=== PATIENT | male | born 1980 | race Two or more races ===

== ENCOUNTER 2019-10-17 08:46 | Day surgery (SDC) | payer OTHER ==
[2019-10-17] VITALS (15 sets, daily range): BP systolic 103–138; BP diastolic 57–90
[~2019-10-17] VITALS: Ht 167.6 cm; Wt 75.0 kg
--- NOTE | 2019-10-17 07:42 | Pre-Procedure Note/Attestation ---
Pre-Procedure Note/Attestation Complete Prior to Procedure Planned Procedure: right Procedure Narrative: shoulder diagnostic arthroscopy, sad Indications for Procedure Pre-Operative Diagnosis: right shoulder internal derangment Attestation I attest that I discussed the nature of the procedure; its benefits; risks and complications; and alternatives (and the risks and benefits of such alternatives ), prior to the procedure, with the patient (or the patient's legal inbound sales representative). I attest that, if there was a reasonable possibility of needing a blood transfusion, the patient (or the patient's legal inbound sales representative) was given the [facility] standardized written summary, pursuant to the [place] Blood Safety Act ([place] Health and Safety Code # 1645, as amended). I attest that I re-evaluated the patient just prior to the surgery and that there has been no change in the patient's H&P, except as documented below: Titi Duran MD October 17, 2019 07:42
--- NOTE | 2019-10-17 07:43 | Operative Note - PDOC ---
Operative Note Operative Note Pre-op Diagnosis: right shoulder internal derangment Procedure: see op report Post-op Diagnosis: same as pre-op plus Operative Findings: consistent w/pre-op dx studies Anesthesia: regional, MAC Specimen: none Complications: none Condition: stable Estimated Blood Loss: none Implant(s) used?: No Titi Duran MD October 17, 2019 07:43
[~2019-10-17 08:46] MED LIST: D5 1/2NS 1,000 ML IV SCH; HYDROcodone/Acetamin 5/325 tab ORAL PRN; HYDROmorphone 1mg/ml Carpuject SUBQ PRN; Tylenol #3 tab (300mg/30mg) ORAL PRN; ceFAZolin 1gm IVPB IVPB ONE; celeBREX 200mg Cap **SURGERY PATIENTS ONLY ORAL ONE
[2019-10-17] MEDS ORDERED: AMLODIPINE BES2.5 MG ORAL (09:51)
[2019-10-17] MEDS ORDERED: BACLOFEN10 MG ORAL (09:51)
[2019-10-17] MEDS ORDERED: TYLENOL EXTRA500 MG ORAL (09:51)
[2019-10-17] MEDS ORDERED: VIMPAT50 MG PO (09:51)
[2019-10-17] MEDS ORDERED: DETROL2 MG ORAL (09:51)
[2019-10-17] MEDS ORDERED: oxyCONTIN 20mg tab ORAL ONE (09:53)
[2019-10-17] MEDS ORDERED: celeBREX 200mg Cap **SURGERY PATIENTS ONLY ORAL ONE (09:53)
[2019-10-17] MEDS ORDERED: Midazolam 2mg/2ml Inj ONE ×2 (09:58→10:23)
[2019-10-17] MEDS ORDERED: fentaNYL 100 mcg/2 mL IV ONE ×2 (09:58→10:23)
[2019-10-17] MEDS ORDERED: Lidocaine 1% MPF 10mg/ml 5ml ONE ×2 (09:58→11:33)
[2019-10-17] MEDS ORDERED: Ropivacaine 5mg/ml Vial 20ml INJ ONE ×2 (10:01→11:33)
[2019-10-17] MEDS ORDERED: EPINEPHrine 1mg/1ml Amp ONE (10:27)
[2019-10-17] MEDS ORDERED: Kenalog-40 1ml Vial ONE (10:27)
[2019-10-17] MEDS ORDERED: Duramorph PF 5mg/10ml amp ONE (10:27)
[2019-10-17] MEDS ORDERED: Ketorolac 30mg Inj ONE (10:27)
[2019-10-17] MEDS ORDERED: Glycopyrrolate 0.2mg/ml 1ml Vial ONE ×2 (10:30→11:39)
[2019-10-17] MEDS ORDERED: Neostigmine 1mg/ml 10ml Inj ONE ×2 (10:30→11:39)
[2019-10-17] MEDS ORDERED: LR 1000ml ONE (10:30)
[2019-10-17] MEDS ORDERED: Sterile Water Irrig 1000ml IRRIG ONE (10:30)
[2019-10-17] MEDS ORDERED: Rocuronium Bromide 50mg/5ml Inj IV ONE (10:37)
[2019-10-17] MEDS ORDERED: Bupivacaine 0.25% Inj 30ml INJ ONE (10:42)
[2019-10-17] MEDS ORDERED: NS Irrig 2000ml IRRIG ONE ×2 (11:10→11:50)
[2019-10-17] MEDS ORDERED: Metoclopramide 10mg/2ml Inj IVP PRN (11:45)
[2019-10-17] MEDS ORDERED: fentaNYL 100 mcg/2 mL IV PRN (11:45)
--- NOTE | 2019-10-17 11:49 | Anethesia Preoperative Eval ---
Anesthesia Pre-op PMH/ROS General Date of Evaluation: October 17, 2019 Time of Evaluation: 10:45 Anesthesiologist: katie ASA Score: ASA 2 Mallampati Score Class I : Soft palate, uvula, fauces, pillars visible Class II: Soft palate, uvula, fauces visible Class III: Soft palate, base of uvula visible Class IV: Only hard plate visible Mallampati Classification: Class II Surgeon: cristopher Diagnosis: shouler impingmet Surgical Procedure: shoulder arthroscopy Anesthesia History: none Family History: no anesthesia problems Allergies: Coded Allergies: ACETAMINOPHEN (Verified Allergy, Severe, seizure after taking norco, ) HYDROCODONE (Verified Allergy, Unknown, 10/15/19) Medications: see eMAR Patient NPO?: Yes NPO Date: October 17, 2019 NPO Time: 00:01 Past Medical History Cardiovascular: Reports: HTN Pulmonary: Denies: asthma, COPD, GERA, other Gastrointestinal/Genitourinary: Denies: GERD, CRI, ESRD, other Neurologic/Psychiatric: Reports: other - Cerebral Palsy; right sided weakess; Denies: dementia, CVA, depression/anxiety, TIA Endocrine: Denies: DM, hypothyroidism, steroids, other HEENT: Reports: other; Denies: cataract (L), cataract (R), glaucoma, [place] (L), [place] (R) Hematology/Immune: Denies: anemia, DVT, bleeding disorder, other Musculoskeletal/Integumentary: Denies: OA, RA, DJD, DDD, edema, other PMH Narrative: seizure disorder Anesthesia Pre-op Phys. Exam Physician Exam Last Vital Signs Date Time Temp Pulse Resp B/P (MAP) Pulse Ox O2 Delivery O2 Flow Rate FiO2 10/17/19 09:31 Room Air 10/17/19 09:23 98.6 87 20 131/88 98 Constitutional: NAD Neurologic: CN 2-12 intact, other - slow in speech but able communicate Cardiovascular: RRR Respiratory: CTA Gastrointestinal: S/NT/ND Airway Exam Mallampati Classification 2 Mallampati Score: Class II MO: full Neck: thck TMD: 2fb Dentures: no upper, no lower Anesthesia Pre-op A/P Studies Pre-op Studies: EKG - S Risk Assessment & Plan Plan: General/block Status Change Before Surgery: No Pre-Antibiotics Drug: ancef Given Within 1 Hr of Incision: Yes Time Given: 11:00 Charity Galindo CRNA October 17, 2019 11:49
--- NOTE | 2019-10-17 12:27 | Immediate Post-Op Evaluation ---
Immediate Post-Op Evalulation Immediate Post-Op Evalulation Procedure: right shoulder arthroscopy with SAD Date of Evaluation: October 17, 2019 Time of Evaluation: 12:25 IV Fluids: 500 Blood Pressure Systolic: 110 Blood Pressure Diastolic: 60 Pulse Rate: 70 Respiratory Rate: 14 O2 Sat by Pulse Oximetry: 98 Temperature (Fahrenheit): 97.0 Nausea: No Vomiting: No Complications none Patient Status: reacts, patent Hydration Status: adequate Drug: ancef Given Within 1 Hr of Incision: Yes Time Given: 11:00 Charity Galindo CRNA October 17, 2019 12:27
--- NOTE | 2019-10-17 14:19 | 48 Hour Post Anesthesia Eval ---
Post Anesthesia Evaluation Procedure: right shoulder arthroscopy with SAD Date of Evaluation: October 17, 2019 Time of Evaluation: 14:19 Blood Pressure Systolic: 133 0: 86 Respiratory Rate: 14 O2 Sat by Pulse Oximetry: 98 Airway: patent Nausea: No Vomiting: No Pain Intensity: 0 Hydration Status: adequate Mental Status/LOC: patient returned to baseline Post-Anesthesia Complications: none Follow-up care needed: N/A Charity Galindo CRNA October 17, 2019 14:19
--- NOTE | 2019-10-17 17:30 | Operative Note - Dictated ---
DATE OF OPERATION: 10/17/2019 PREOPERATIVE DIAGNOSES: 1. Right shoulder labral tear. 2. Right shoulder bursitis/tendinitis. POSTOPERATIVE DIAGNOSES: 1. Right shoulder labral tear. 2. Right shoulder bursitis/tendinitis. PROCEDURE: 1. Right shoulder diagnostic arthroscopy with intraarticular debridement. 2. Right shoulder subacromial decompression bursectomy. SURGEON: Titi Duran MD. ANESTHESIA: Interscalene general. INDICATION FOR PROCEDURE: Patient is a pleasant gentleman, who has had a significant injury to the right shoulder with controlled activities. Failed conservative treatment. Elects to undergo right shoulder arthroscopic labral repair versus debridement versus subacromial decompression. Risks, limitations, expectations, complications were discussed in detail. All questions were addressed. DESCRIPTION OF PROCEDURE: After informed consent obtained, patient was brought to the operating room. Patient was placed under interscalene general anesthesia. Patient was then carefully placed in position. Right shoulder was prepped and draped in a sterile manner. A posterolateral stab incision was then made. Trocar was introduced in the glenohumeral joint. There was fraying of the anterior labrum. Articular cartilage appeared to be intact along with the subscap. The biceps tendon was intact along the articular surface of the rotator cuff. Shaver was then placed through rotator interval. Debridement of the anterior labral tear was performed. Once that was done, the camera was placed in the subacromial space. There was hypertrophic bursal tissue. The undersurface of the acromion was identified. Acromioplasty was started from lateral to medial and completed from posterior to anterior. Once that was done, the instruments were removed. Portal sites were closed with 3-0 Monocryl sutures. Patient was awoken and taken to recovery room with stable vital signs. ESTIMATED BLOOD LOSS: None. COMPLICATIONS: None. SPECIMENS: None. IMPLANTS: None. Titi Duran M.D. DR: EMERALD JOB#: [id number] CC:
== END 2019-10-17 14:25 | disposition home or self-care (01) ==
LOC: SUR 08:46
DX: S43.401A Unspecified sprain of right shoulder joint, initial encounter (principal); M71.9 Bursopathy, unspecified; I10 Essential (primary) hypertension; G40.909 Epilepsy, unspecified, not intractable, without status epilepticus; G80.9 Cerebral palsy, unspecified; Z88.6 Allergy status to analgesic agent; X58.XXXA Exposure to other specified factors, initial encounter; Y92.9 Unspecified place or not applicable
CPT/HCPCS: 29822; 94003; J0171; J0690; J1885; J2250; J2405; J2704; J2710; J2795; J3010; J3301; J3490; J7120; 94150